=== PATIENT | male | born 1950 | race Caucasian/White ===

== ENCOUNTER → 2021-01-21 | Outpatient (CLI) | payer MEDICARE, OTHER ==
--- NOTE | 2021-01-21 18:08 | RAD ---
EXAM: CT HEAD WITHOUT CONTRAST. HISTORY: Dizziness, headache, transient ischemic attack. TECHNIQUE: Computed tomography of the head was performed without intravenous contrast. One or more of the following individualized dose reduction techniques were utilized for this examination: 1. Automated exposure control. 2. Adjustment of the mA and/or kV according to patient size. 3. Use of iterative reconstruction technique. COMPARISON: None. FINDINGS: There is no intracranial hemorrhage. Hudson-white differentiation is preserved. The ventricle s are normal in size and position. The visualized paranasal sinuses appear clear. The orbits are unremarkable. The temporal bones are un remarkable. The calvarium reveals no suspicious lesions. IMPRESSION: 1. No acute intracranial findings. Electronically signed by: Lc Patino MD (01/21/2021 6:06 PM) [facility]
== END ==
LOC: CT 17:39
PROVIDERS: ATTEND Specialist
DX: R42 Dizziness and giddiness (principal); Z86.73 Personal history of transient ischemic attack (TIA), and cerebral infarction without residual deficits
CPT/HCPCS: 70450

== ENCOUNTER → 2021-07-03 | Outpatient (CLI) | payer MEDICARE, OTHER ==
--- NOTE | 2021-07-03 17:24 | RAD ---
DXA BONE DENSITY AXIAL History: Reason: SCREENING / Spl. Instructions: / History: Fracture history. Steroid use. Prior hist ory of chemotherapy. Comparison: None. TECHNIQUE: Dual energy x-ray absorptiometry of the lumbar spine and right hip was performed. T-score of average bone mineral density based was calculated based on standard deviations above or below the expected young adult normal value. Diagnostic definitions were established by the [employer] z[employer]. FINDINGS: The average bone mineral density associated with L1-L4 is 1.651 g/cm^2, corresponding with a T-score of 3.6. The average total bone mineral density associated with right hip is 1.082 g/cm^2, corresponding with a T-score of 0.3. Refer to the worksheets for full detail. IMPRESSION: 1. Normal. Average bone mineral density yields a T-score of -1.0 or greater. Fracture risk is low. Electronically signed by: Rickie Rosado DO (07/03/2021 5:22 PM) [id number]
== END ==
LOC: DXRAD 09:51
PROVIDERS: ATTEND Family Medicine
DX: Z94.81 Bone marrow transplant status (principal); M89.9 Disorder of bone, unspecified
CPT/HCPCS: 77080